=== PATIENT | male | born 1945 | race Caucasian/White ===

== ENCOUNTER 2020-09-05 10:26 | Day surgery (SDC) | payer BC ==
[~2020-09-05] VITALS: Ht 177.8 cm; Wt 112.5 kg
[~2020-09-05 10:26] MED LIST: AMITRIPTYLINE H10 M1 PO; ASPIRIN 81M81 MG/TA2 PO; CRESTOR 10MG10 MG PO; CRESTOR20 MG PO; FAMVIR 500500 MG/TAB PO; LORTAB 5/500 501 TAB PO; PREDNISONE20 MG PO; PRINIVIL20 MG PO; THORAZINE 225 MG/TAB PO; TYLENOL 500MG500 MG PO
[2020-09-05 10:54] VITALS: BP 141/78; PULSE 68; TEMP 98.7
[2020-09-05] MEDS ORDERED: LIPITOR20 MG PO (11:05)
[2020-09-05] MEDS ORDERED: COZAAR 50MG50 MG/TAB PO (11:05)
--- NOTE | 2020-09-05 11:06 | NUR ---
TO RM AT 1034- CALL LIGHT IN REACH WILL CALL FOR RIDE HOME
[2020-09-05 11:55] VITALS: BP 122/70; PULSE 60
--- NOTE | 2020-09-05 11:55 | NUR ---
Patient returns to [facility] [address] and transfers from cart to recliner with one person assist. IV fluids infusing and site is free of redness. Drinking juice and eating muffin. Denies pain or nausea.
[2020-09-05 12:15] VITALS: BP 141/78; PULSE 69
--- NOTE | 2020-09-05 12:15 | NUR ---
Tolerates snack and denies nausea. Room air sats 97%.
[2020-09-05 12:30] VITALS: BP 132/67; PULSE 60
--- NOTE | 2020-09-05 12:30 | NUR ---
Talking with spouse and IV fluids continue to infuse. Denies pain or nausea.
--- NOTE | 2020-09-05 12:40 | NUR ---
IV discontinued and site is free of redness or swelling. Given dismissal instructions and voices understanding of these.
--- NOTE | 2020-09-05 12:43 | NUR ---
Patient dismissed to home driven by spouse and taken to the front door per wheelchair and assisted into vehicle with instructions in hand.
== END 2020-09-05 12:43 | disposition home or self-care (01) ==
LOC: SDCO 10:26
DX: Z12.11 Encounter for screening for malignant neoplasm of colon (principal); D12.5 Benign neoplasm of sigmoid colon; K57.30 Diverticulosis of large intestine without perforation or abscess without bleeding; I10 Essential (primary) hypertension; I25.10 Atherosclerotic heart disease of native coronary artery without angina pectoris; E78.5 Hyperlipidemia, unspecified; G47.33 Obstructive sleep apnea (adult) (pediatric); M19.90 Unspecified osteoarthritis, unspecified site; Z79.899 Other long term (current) drug therapy; Z79.82 Long term (current) use of aspirin; Z99.89 Dependence on other enabling machines and devices
CPT/HCPCS: J2704; J7120

== ENCOUNTER → 2021-06-10 | Outpatient (CLI) | payer BC ==
[~2021-06-10] MED LIST changes: +COZAAR 50MG50 MG/TAB PO; +LIPITOR20 MG PO
== END ==
LOC: DIA.ED 13:14
DX: E11.9 Type 2 diabetes mellitus without complications (principal)
CPT/HCPCS: G0108